=== PATIENT | female | born 1965 | race Caucasian/White ===

== ENCOUNTER → 2018-12-07 13:21 | Outpatient (POV) | payer SELFPAY | PROVIDERS: Visit Provider Dermatology | DX: Z00.00 Encounter for general adult medical examination without abnormal findings (principal) ==

== ENCOUNTER 2019-11-09 10:30 | Emergency (ER) | payer BC, SELFPAY ==
[2019-11-09 10:38] VITALS: BP 143/86; PULSE 94; RESP 18; TEMP 36.6; O2SAT 100; BMI 32.5
--- NOTE | 2019-11-09 11:06 | HMH.EDGENADL ---
ED Disposition Clinical Impression: Local reaction to bee sting Qualifiers: Encounter type: initial encounter Injury intent: accidental or unintentional Qualified Code(s): T63.441A - Toxic effect of venom of bees, accidental (unintentional), initial encounter Disposition: Home, Self-Care Condition on Discharge: Good Instructions: DI for Insect Bites and Stings Additional Instructions: Continue ice, Zyrtec. Prednisone as prescribed beginning tomorrow. Return to the emergency room if fever, swelling becoming more severe or difficulty breathing. Prescriptions: predniSONE [Prednisone 20mg Tab] 20 mg PO BID #10 tab Transmission Status: Received by [facility] #[id number] Referrals: Gigi Girard [Primary Care Provider] - - Critical Care Critical Care Time: No Attestation: On 11/09/19, the high probability of a clinically significant, sudden or life threatening deterioration of the following system(s) required my full and direct attention, intervention and personal management. The time I documented below is in addition to time spent performing reported procedures but includes the following listed in this critical care notation. Medical Decision Making - Samson Inquiry Pt receiving controlled substance: No Vital Signs: 11/09/19 10:38 11/09/19 11:55 Temperature 97.9 F 97.9 F Temperature Source Oral Oral Pulse Rate 94 H Pulse Rate [Left Radial] 94 H Respiratory Rate 18 18 Blood Pressure 143/86 H Blood Pressure [Left Arm] 143/86 H Blood Pressure Mean [Left Arm] 105 Blood Pressure Source Automatic Cuff Blood Pressure Source [Left Arm] Automatic Cuff Blood Pressure Position Sitting Blood Pressure Position [Left Arm] Sitting 02 Sat by Pulse Oximetry 100 Oxygen Delivery Method Room Air Room Air Orders (Tests/Meds): ED MEDICATIONS Discontinued Medications Generic Name Dose Route Start Last Admin Trade Name Freq PRN Reason Stop Dose Admin Dexamethasone Sodium Phosphate 10 mg 11/09/19 11:16 11/09/19 11:22 Decadron 4mg/Ml 1ml Vial IM 11/09/19 11:17 10 mg ONCE ONE Administration General Adult HPI - General Chief complaint: Allergic Reaction Stated complaint: bee sting on chin reaction Time Seen by Provider: 11/09/19 11:06 Mode of Arrival: Ambulatory Limitations: No Limitations Description of Symptoms (Recalled from ER Triage Doc. by RN): Pt reports stung by a bee yesterday on her chin. Redness and swelling noted to chin and neck. Pt reports swelling, redness is worse this morning and skin is warm to the touch and is having difficulty swallowing. Pt denies SOA. States she took zyrtec yesterday and this morning. Pt reports has not taken benadryl because is makes her very drowsy and SOA - History of Present Illness HPI narrative: The patient is a senior analyst. She got stung by a honeybee on her chin yesterday. Yesterday she had swelling and redness, local heat of the chin but overnight it has extended down onto her anterior neck and causes some tightness with swallowing. No wheezing or shortness of breath. She says that she has a history of these types of local reactions to previous stings. She usually gets treated with steroids. She cannot take Benadryl due to excessive drowsiness, she has been taking Zyrtec. - Related Data Previous Rx's Medication Instructions Recorded predniSONE [Prednisone 20mg 20 mg PO BID #10 tab 11/09/19 Tab] Allergies Allergy/AdvReac Type Severity Reaction Status Date / Time No Known Allergies Allergy Verified 11/09/19 11:19 [facility] History - Hepatitis A Screen Drug use history?: No High risk sexual behaviors?: No History of sexually transmitted infection?: No Currently employed?: No Childcare worker?: No Do you have indoor plumbing?: Yes Do you have electricity?: Yes Attestation statement:: This patient has been screened for Hepatitis A risk factors. I have reviewed the patient's past medical history: Yes Medi
[2019-11-09 11:55] VITALS: BP 143/86; PULSE 94; RESP 18; TEMP 36.6; O2SAT 100
== END 2019-11-09 11:57 | disposition home or self-care (01) ==
PROVIDERS: Emergency Provider Emergency Medicine; PCP Family Medicine
DX: T63.441A Toxic effect of venom of bees, accidental (unintentional), initial encounter (principal)
CPT/HCPCS: 96372; 99281

== ENCOUNTER 2020-10-14 18:28 | Emergency (ER) | payer BC, SELFPAY ==
[2020-10-14 19:15] VITALS: BP 131/64; PULSE 67; RESP 19; TEMP 36.8; O2SAT 98; BMI 33.0
--- NOTE | 2020-10-14 19:40 | HMH.EDUTC ---
[facility] [place]: Local reaction to bee sting Qualifiers: Encounter type: initial encounter Injury intent: undetermined intent Qualified Code(s): T63.444A - Toxic effect of venom of bees, undetermined, initial encounter Disposition: Home, Self-Care Condition on Discharge: Good Instructions: Insect Bites and Stings, DI for Insect Bites and Stings, How to Care for an Insect Bite or Sting Additional Instructions: Take over the counter Bendadryl as directed on package for bee sting reactions Follow up with your Family Doctor if no improvement or any worsening of symptoms REturn if needed Straight to ER if any life threatening symptoms Prescriptions: methylPREDNISolone [Medrol 4mg tab] 4 mg PO DIRECTED #21 tab Transmission Status: Pending to [facility] #[id number] Referrals: Gigi Girard [Primary Care Provider] - As needed Time of Disposition: 20:04 Medical Decision Making - Samson Inquiry Pt receiving controlled substance: No Samson was queried for this patient: No Vital Signs: 10/14/20 19:15 Temperature 98.2 F Temperature Source Oral Pulse Rate [Right Brachial] 67 Respiratory Rate 19 Blood Pressure [Right Arm] 131/64 Blood Pressure Mean [Right Arm] 86 Blood Pressure Source [Right Arm] Automatic Cuff Blood Pressure Position [Right Arm] Sitting 02 Sat by Pulse Oximetry 98 Oxygen Delivery Method Room Air Orders (Tests/Meds): ED MEDICATIONS Discontinued Medications Generic Name Dose Route Start Last Admin Trade Name Freq PRN Reason Stop Dose Admin Famotidine 20 mg 10/14/20 19:42 10/14/20 19:50 Famotidine 20mg Tablet PO 10/14/20 19:43 20 mg ONCE ONE Administration Loratadine 10 mg 10/14/20 19:42 10/14/20 19:50 Loratadine 10mg Tablet PO 10/14/20 19:43 10 mg ONCE ONE Administration Methylprednisolone Sodium Succinate 125 mg 10/14/20 19:42 10/14/20 19:50 Methylprednisolone Sod Succ 125mg Vial IM 10/14/20 19:43 125 mg ONCE ONE Administration Medical Decision Narrative: Patient is driving and could not have Benadryl due to no one to drive her home Swelling much improved after medication patient states that her chin is not feeling as tight and feeling better [facility] [place] General Stated complaint: bee sting Time Seen by Provider: 10/14/20 19:41 Mode of Arrival: Ambulatory Source of Information: Patient Limitations: No Limitations Description of Symptoms (Recalled from Triage Doc. by RN): PATIENT C/O BEE STING ON CHIN APPROX 1750 TODAY HEENT Symptoms (Recalled from RN notes): Yes Resp Symptoms (Recalled from RN notes): No Skin Symptoms (Recalled from RN notes): No MS Symptoms (Recalled from RN notes): No Functional Status (Recalled from RN notes): WNL - History of Present Illness Provider Complaint: Patient states that she was working her bees earlier When one stung her on the chin State that she sometimes has reactions so she knew she needed to come in and get checked States that she is not having any trouble breathing and no swelling in her lips yet but she was not sure what she can take with her medications so she came in to get treated - Related Data Home Medications Medication Instructions Recorded Confirmed Losartan Potassium [Cozaar 100mg 100 mg PO DAILY 10/14/20 10/14/20 Tablets] Metoprolol Succinate [Metoprolol 50 mg PO DAILY 10/14/20 10/14/20 Succinate 50mg Tablet*] Sertraline HCl [Zoloft 50mg tablet] 50 mg PO DAILY 10/14/20 10/14/20 Previous Rx's Medication Instructions Recorded methylPREDNISolone [Medrol 4mg 4 mg PO DIRECTED #21 tab 10/14/20 tab] Allergies Allergy/AdvReac Type Severity Reaction Status Date / Time No Known Allergies Allergy Verified 11/09/19 11:19 - Worker's Comp Is this a Worker's Comp case?: No H History - Hepatitis A Screen Drug use history?: No High risk sexual behaviors?: No History of sexually transmitted infection?: No Currently employed?: No Child
[2020-10-14 20:06] VITALS: BP 131/64; PULSE 67; RESP 19; TEMP 36.8; O2SAT 98
== END 2020-10-14 20:11 | disposition home or self-care (01) ==
PROVIDERS: Emergency Provider Nurse Practitioner; PCP Family Medicine
DX: T63.441A Toxic effect of venom of bees, accidental (unintentional), initial encounter (principal); S00.86XA Insect bite (nonvenomous) of other part of head, initial encounter; W57.XXXA Bitten or stung by nonvenomous insect and other nonvenomous arthropods, initial encounter; Y92.017 Garden or yard in single-family (private) house as the place of occurrence of the external cause
CPT/HCPCS: 96372; 99202; G0463

== ENCOUNTER 2021-04-11 14:39 | Emergency (ER) | payer BC, SELFPAY ==
[2021-04-11 14:46] VITALS: BP 146/74; PULSE 74; RESP 16; O2SAT 98; BMI 39.1
--- NOTE | 2021-04-11 14:50 | XR_ITS ---
PROCEDURE: XR ANKLE LT MIN 3V CLINICAL INDICATION: twisted ankle COMPARISON: No exams were available for comparison FINDINGS: No definite fracture or dislocation. IMPRESSION: No definite fracture or dislocation. Dictated by: Paris Rutledge MD 04/11/2021 15:39 Paris Rutledge MD in [place] 04/11/2021 15:39
[2021-04-11 16:07] VITALS: BP 122/51; PULSE 77; RESP 14; TEMP 36.6; O2SAT 98; BMI 32.8
--- NOTE | 2021-04-11 16:39 | HMH.EDUTC ---
[facility] [place]ression: Ankle sprain Qualifiers: Encounter type: initial encounter Involved ligament of ankle: unspecified ligament Laterality: left Qualified Code(s): S93.402A - Sprain of unspecified ligament of left ankle, initial encounter Disposition: Home, Self-Care Condition on Discharge: Good Instructions: How to Use Crutches, DI for Ankle Sprain, How to Apply an Gee Wrap, DI for Ankle Pain Additional Instructions: *weight bearing as tolerated *RICE, Rest the extremity, Ice 15-20 minutes 3-4 times daily, Compress- wear the gee wrap as discussed as much as possible to help reduce swelling and pain, Elevate the extremity when at rest *Gee wrap is for support and help control swelling, use it except in the shower. Be sure that is not to tight but not to loose either *Elevate when resting Crutches to help get around *Ibuprofen every 6-8 hours as needed for pain an inflammation. If need something more can take Tylenol in between doses of Ibuprofen to help Immediately follow up with your family doctor for new or worsening of symptoms, or no noticeable improvement over the next 3-5 days Follow up with your Family Doctor or Podiatry if no improvement or any worsening of symptoms Referrals: Gigi iGrard [Primary Care Provider] - As needed Viridiana Carmona DPM [Staff Physician] - Arianna Yadav APRN [Nurse Practitioner] - Time of Disposition: 16:46 Medical Decision Making - Samson Inquiry Pt receiving controlled substance: No Samson was queried for this patient: No Vital Signs: 04/11/21 14:46 04/11/21 16:07 Temperature 98 F Temperature Source Oral Pulse Rate [Right] 74 77 Respiratory Rate 16 14 Blood Pressure [Right Arm] 146/74 H 122/51 L Blood Pressure Mean [Right Arm] 98 74 Blood Pressure Source [Right Arm] Automatic Cuff Blood Pressure Position [Right Arm] Sitting 02 Sat by Pulse Oximetry 98 98 Oxygen Delivery Method Room Air - Radiology Data #1 Image(s): Ankle Image Reviewed: Yes I have reviewed radiologist's interpretation Preliminary Findings: No Fracture Seen IMPRESSION: No definite fracture or dislocation. [facility] [place] - General Stated complaint: AO fall 04/11 lft ankle pain Time Seen by Provider: 04/11/21 16:39 Mode of Arrival: Ambulatory Source of Information: Patient Limitations: No Limitations Description of Symptoms (Recalled from Triage Doc. by RN): pt states she twisted her L ankle this morning in a mole hole. HEENT Symptoms (Recalled from RN notes): No Resp Symptoms (Recalled from RN notes): No Skin Symptoms (Recalled from RN notes): No MS Symptoms (Recalled from RN notes): Yes (L ankle pain) Functional Status (Recalled from RN notes): na - History of Present Illness Provider Complaint: Patient states that this morning she was walking and accidently stepped in a mole hole and twisted her left ankle States that since then she has continued to have pain and swelling so this evening she came in to get it checked - Related Data Home Medications Medication Instructions Recorded Confirmed Losartan Potassium [Cozaar 100mg 100 mg PO DAILY 10/14/20 10/14/20 Tablets] Metoprolol Succinate [Metoprolol 50 mg PO DAILY 10/14/20 10/14/20 Succinate 50mg Tablet*] Sertraline HCl [Zoloft 50mg tablet] 50 mg PO DAILY 10/14/20 10/14/20 Previous Rx's Medication Instructions Recorded methylPREDNISolone [Medrol 4mg 4 mg PO DIRECTED #21 tab 10/14/20 tab] Allergies Allergy/AdvReac Type Severity Reaction Status Date / Time No Known Allergies Allergy Verified 11/09/19 11:19 - Worker's Comp Is this a Worker's Comp case?: No [facility] History - Hepatitis A Screen Drug use history?: No High risk sexual behaviors?: No History of sexually transmitted infection?: No Currently employed?: No Childcare worker?: No Do you have indoor plumbing?: Yes Do you have electricity?: Yes Attestation statement:: This patient has been screened for Hepatitis A risk f
[2021-04-11 17:11] VITALS: BP 122/51; PULSE 77; RESP 18; TEMP 36.6
== END 2021-04-11 17:15 | disposition home or self-care (01) ==
PROVIDERS: Emergency Provider Nurse Practitioner; PCP Family Medicine
DX: S93.402A Sprain of unspecified ligament of left ankle, initial encounter (principal); X50.1XXA Overexertion from prolonged static or awkward postures, initial encounter; Y92.017 Garden or yard in single-family (private) house as the place of occurrence of the external cause
CPT/HCPCS: 29515; 73610; 99202; G0463

== ENCOUNTER 2021-10-25 19:27 | Emergency (ER) | payer BC, SELFPAY ==
[2021-10-25 19:50] VITALS: BP 120/69; PULSE 69; RESP 18; TEMP 37; O2SAT 98; BMI 33.5
--- NOTE | 2021-10-25 20:53 | HMH.EDUTC ---
[facility] [place] Impression: Bronchitis, Viral syndrome Sinusitis Qualifiers: Sinusitis location: unspecified location Chronicity: acute Recurrence: non-recurrent Qualified Code(s): J01.90 - Acute sinusitis, unspecified Disposition: Home, Self-Care Condition on Discharge: Good Instructions: DI for Sinusitis Additional Instructions: Drink plenty of fluids. Take tylenol or ibuprofen for pain or fever. Take the medications as directed. Follow up with your regular doctor. GO TO THE ER FOR ANY WORSENING SYMPTOMS Don't start the oral steroids until tomorrow, since you had the shot here today. The cough medication (promethazine dm) will make you drowsy, so don't drive or operate heavy machinery after taking it. Prescriptions: Promethazine/Dextromethorphan [Promethazine-Dm Syrup] 5 ml PO Q6HP PRN #240 ml PRN Reason: Cough Transmission Status: Received by [facility] #[id number] methylPREDNISolone [Medrol] 4 mg PO DIRECTED 6 Days #21 packet Transmission Status: Received by [facility] #[id number] Azithromycin [Z-Mau 250mg Tab*] 250 mg PO UD DOSE PK #6 tab Transmission Status: Received by [facility] #[id number] Referrals: Gigi Girard [Primary Care Provider] - Time of Disposition: 21:13 Medical Decision Making - Medical Records Medical records reviewed: No: I reviewed the patient's medical records. - Samson Inquiry Pt receiving controlled substance: No Vital Signs: 10/25/21 19:50 10/25/21 21:06 Temperature 98.6 F 98.6 F Temperature Source Oral Pulse Rate 69 Pulse Rate [Left Brachial] 69 Respiratory Rate 18 18 Blood Pressure 120/69 Blood Pressure [Left Arm] 120/69 Blood Pressure Mean [Left Arm] 86 Blood Pressure Source [Left Arm] Automatic Cuff Blood Pressure Position [Left Arm] Sitting 02 Sat by Pulse Oximetry 98 Oxygen Delivery Method Room Air - Lab Data Lab Results 10/25/21 21:00: Chlamy pneumoniae PCR Not detected, Adenovirus (PCR) Not detected, B. pertussis DNA (PCR) Not detected, Coronavirus OC43 (PCR) Not detected, Coronavirus HKU1 (PCR) Not detected, Coronavirus 229E (PCR) Not detected, SARS-CoV-2 (PCR) Not detected, Coronavirus NL63 (PCR) Not detected, Human Metapneumovir PCR Not detected, Influenza A (H1) PCR Not detected, Influ A (H1N1/09) PCR Not detected, Influenza A (H3) PCR Not detected, Influenza Type A (PCR) Not detected, Influenza Type B (PCR) Not detected, M. pneumoniae (PCR) Not detected, Parainfluenza 1 (PCR) Not detected, Parainfluenza 2 (PCR) Not detected, Parainfluenza 3 (PCR) Detected A, Parainfluenza 4 (PCR) Not detected, RSV (PCR) Not detected, Entero/Rhino (PCR) Not detected Orders (Tests/Meds): ED MEDICATIONS Discontinued Medications Generic Name Dose Route Start Last Admin Trade Name Freq PRN Reason Stop Dose Admin Dexamethasone Sodium Phosphate 8 mg 10/25/21 20:56 10/25/21 21:00 Dexamethasone 4mg/Ml 1ml Vial IM 10/25/21 20:57 8 mg ONCE ONE Administration [facility] [place] - General Stated complaint: runny nose, sore throat,cough,fever Time Seen by Provider: 10/25/21 20:53 Mode of Arrival: Ambulatory Source of Information: Patient Limitations: No Limitations Description of Symptoms (Recalled from Triage Doc. by RN): PATIENT C/O NASAL CONGESTION, COUGH, AND FEVER SINCE Thursday Symptoms (Recalled from RN notes): Yes Resp Symptoms (Recalled from RN notes): Yes Skin Symptoms (Recalled from RN notes): No MS Symptoms (Recalled from RN notes): No Functional Status (Recalled from RN notes): WNL - History of Present Illness Provider Complaint: She c/o cough, chest congestion, sinus congestion, sore throat, chills, low grade fever and malaise for the past 2 days. - Related Data Home Medications Medication Instructions Recorded Confirmed Losartan Potassium [Cozaar 100mg 100 mg PO DAILY 10/14/20 10/14/20 Tablets] Metoprolol Succinate [Metoprolol 50 mg PO DAILY 10/14/20 10/25/21 Suc
[2021-10-25 21:06] VITALS: BP 120/69; PULSE 69; RESP 18; TEMP 37; O2SAT 98
[2021-10-25 21:08] LABS: Adenovirus,PCR Not Detected (NotDetected); Bordetella Pertussis Not Detected (NotDetected); Chlamydophila Pneumoniae, PCR Not Detected (NotDetected); Coronavirus 19, PCR Not Detected (NotDetected); Coronavirus 229E Not Detected (NotDetected); Coronavirus NL63 Not Detected (NotDetected); Coronavirus OC43 Not Detected (NotDetected); Coronovirus HKU1,PCR Not Detected (NotDetected); Human Metapneumovirus Not Detected (NotDetected); Influenza A, PCR Not Detected (NotDetected); Influenza AH1, 2009 Not Detected (NotDetected); Influenza AH1, PCR Not Detected (NotDetected); Influenza AH3,PCR Not Detected (NotDetected); Influenza B, PCR Not Detected (NotDetected); Mycoplasma Pneumoniae, PCR Not Detected (NotDetected); Parainfluenza 1, PCR Not Detected (NotDetected); Parainfluenza 2, PCR Not Detected (NotDetected); Parainfluenza 4, PCR Not Detected (NotDetected); Respiratory Syncytial Virus Not Detected (NotDetected); Rhinovirus/Enterovirus Not Detected (NotDetected)
[2021-10-25 23:39] LABS: Parainfluenza 3, PCR Detected (NotDetected)
== END 2021-10-25 21:16 | disposition home or self-care (01) ==
PROVIDERS: Emergency Provider Nurse Practitioner Family; PCP Family Medicine
DX: B34.8 Other viral infections of unspecified site (principal); J01.90 Acute sinusitis, unspecified; Z20.822 Contact with and (suspected) exposure to COVID-19; Z79.52 Long term (current) use of systemic steroids
CPT/HCPCS: 87581; 87632; 87798; 96372; 99213; C9803; G0463; U0003; U0005

== ENCOUNTER → 2022-04-22 14:05 | Outpatient (CLI) | payer BC, SELFPAY ==
--- NOTE | 2022-04-22 14:13 | ECG_ITS ---
APPROVED REPORT Exam: Resting ECG HR:70 bpm ECG Measurements Heart Rate 70 AXES AR 172 P 76 QRSd 87 QRS 99 QT 391 T 52 QTc 412 Conclusion SINUS RHYTHM BORDERLINE RIGHT AXIS DEVIATION [QRS AXIS > 90] BORDERLINE ECG UNCONFIRMED REPORT Electronically signed by : Kolby Jarquin MD 05/08/2022 20:20:34
== END ==
LOC: RT 14:07
PROVIDERS: PCP Physician Assistant; Visit Provider Colon & Rectal Surgery
DX: Z01.810 Encounter for preprocedural cardiovascular examination (principal)
CPT/HCPCS: 93005

== ENCOUNTER 2023-05-04 13:36 | Emergency (ER) | payer BC, SELFPAY ==
[2023-05-04 13:50] VITALS: BP 0/0; PULSE 0; RESP 0; TEMP -17.7; TEMP 0
--- NOTE | 2023-05-04 13:50 | PC.NURSE ---
PATIENT WENT TO PRIMARY CARE MAIN
== END 2023-05-04 13:51 | disposition left against medical advice (07) ==
LOC: UTC 15:32
PROVIDERS: Emergency Provider Nurse Practitioner; PCP Physician Assistant
DX: Z53.21 Procedure and treatment not carried out due to patient leaving prior to being seen by health care provider (principal)

== ENCOUNTER → 2023-05-04 16:22 | Outpatient (CLI) | payer BC, SELFPAY | PROVIDERS: PCP Physician Assistant; Visit Provider Nurse Practitioner Family | DX: N39.0 Urinary tract infection, site not specified (principal); B96.29 Other Escherichia coli [E. coli] as the cause of diseases classified elsewhere | CPT/HCPCS: 87086 ==

== ENCOUNTER 2023-12-24 21:54 | Emergency (ER) | payer BC, SELFPAY ==
[2023-12-24 22:03] VITALS: BP 123/74; PULSE 93; RESP 15; TEMP 36.8; O2SAT 100; BMI 63.1
--- NOTE | 2023-12-24 22:06 | XR_ITS ---
PROCEDURE INFORMATION: Exam: XR Left Ankle Exam date and time: 12/24/2023 10:28 PM Age: 58 years old Clinical indication: Injury or trauma; Other: Rolled her ankle; Swelling (edema); Left TECHNIQUE: Imaging protocol: Radiologic exam of the left ankle. Views: 3 or more views. COMPARISON: CR XR ANKLE LT MIN 3V 04/11/2021 2:51 PM FINDINGS: Bones/joints: Normal. Soft tissues: Normal. IMPRESSION: No acute findings.
--- NOTE | 2023-12-24 22:10 | HMH.EDGENADL ---
Discharge Plan Disposition Patient Disposition: Home, Self-Care Condition: Fair Prescriptions Prescriptions: No Action metformin 500 mg tablet extended release 24 hr 500 mg PO DAILY Patient Comments: TAKE 1 TABLET BY MOUTH EVERY DAY Rybelsus 14 mg tablet 14 mg PO DAILY losartan-hydrochlorothiazide 50-12.5 mg tablet 1 tab PO DAILY Patient Comments: TAKE 1 TABLET BY MOUTH EVERY DAY atorvastatin 20 mg tablet 20 mg PO DAILY sertraline 100 mg tablet 100 mg PO DAILY Patient Comments: TAKE 1 TABLET BY MOUTH EVERY DAY (DME) OneTouch Ultra Test Strip See Rx Instructions .ROUTE .MEDSUPPLY Qty: 10 Rx Instructions: As directed (DME) lancets [OneTouch Delica Plus Lancet] 33 gauge misc See Rx Instructions .ROUTE .MEDSUPPLY Qty: 100 Patient Comments: USE DIRECTED TO TEST BLOOD SUGAR ONCE DAILY Rx Instructions: As directed multivitamin with iron [Daily Multiple Vitamins/Iron] Tablet 1 tab PO DAILY nitrofurantoin monohyd/m-cryst [Macrobid] 100 mg capsule 100 mg PO Q12H 7 Days Qty: 14 0RF Rx Instructions: must administer with a meal/food Referrals Follow up/Referrals: Yanira Espinosa PA [Primary Care Provider] - See instructions Viridiana Carmona DPM [Staff Physician] - See instructions Clinical Impressions Clinical Impression: Left ankle sprain Qualifiers: Encounter type: initial encounter Involved ligament of ankle: unspecified ligament Qualified Code(s): S93.402A - Sprain of unspecified ligament of left ankle, initial encounter Instructions Patient Instructions: DI for Ankle Sprain Discharge ED Provider: Dave Cohen General Adult HPI <RYAN Issa - Last Filed: 12/24/23 23:02> General Chief complaint: Extremity Injury, Lower Stated complaint: AO 12/24/232129 left foot injury Time Seen by Provider: 12/24/23 22:01 Mode of Arrival: Family Vehicle Source of Information: Patient Limitations: No Limitations Description of Symptoms (Recalled from ER Triage Doc. by RN): tripped over pet at approx 2130 and injured left ankle stating it rolled laterally. obvious swelling. ice applied. no previous issues with foot. History of Present Illness HPI narrative: Patient presents for left ankle pain. Patient states that she inverted her ankle around 9 PM with swelling and inability to bear weight at the time and now. She denies any numbness or tingling. Related Data Home Medications Medication Instructions Recorded Confirmed atorvastatin 20 mg tablet 20 mg PO DAILY 05/04/23 05/04/23 blood sugar diagnostic (OneTouch #10 ea 05/04/23 05/04/23 Ultra Test strips) lancets 33 gauge (OneTouch Delica #100 ea 05/04/23 05/04/23 Plus Lancet) losartan 50 mg-hydrochlorothiazide 1 tab PO DAILY 05/04/23 05/04/23 12.5 mg tablet metformin 500 mg tablet,extended 500 mg PO DAILY 05/04/23 05/04/23 release 24 hr multivitamin with iron (Daily 1 tab PO DAILY 05/04/23 05/04/23 Multiple Vitamins with Iron tablet) semaglutide 14 mg tablet (Rybelsus) 14 mg PO DAILY 05/04/23 05/04/23 sertraline 100 mg tablet 100 mg PO DAILY 05/04/23 05/04/23 Previous Rx's Medication Instructions Recorded nitrofurantoin 100 mg PO Q12H 7 days #14 caps 05/04/23 monohydrate/macrocrystals 100 mg capsule (Macrobid) Allergies Allergy/AdvReac Type Severity Reaction Status Date / Time No Known Allergies Allergy Verified 05/04/23 14:33 [facility] <RYAN Issa - Last Filed: 12/24/23 23:02> [facility] Disclaimer: The information contained in this section may have been updated after the patient was seen, as this information can be updated by other users. Medical History (Updated 12/24/23 @ 22:41 by RYAN Issa) Hyperlipidemia Diabetes Viral syndrome Bronchitis Sinusitis Ankle sprain Local reaction to bee sting Surgical History (Updated 05/04/23 @ 14:37 by Raine Diaz LPN) H/O hemorrhoidectomy Social History (Updated 05/04/23 @ 14:37 by Raine Diaz LPN) Smoking Status: Unknown if ever smoked alcohol intake: never substance use type: denies use current occupational status: other Travel in the last 8 weeks: None <RYNA Issa - Last Filed: 12/24/23 23:02> ROS Obtained: Yes Systems reviewed as appropriate & no additional complaints except as documented Physical Exam <RYAN Issa - Last Filed: 12/24/23 23:02> General General appearance: alert and in no apparent distress Respiratory Respiratory exam: Present normal lung sounds bilaterally Cardiovascular Cardiovascular exam: Present regular rate and normal rhythm Expanded Lower Extremity Exam Left: Ankle image: 1. Ecchymosis and swelling 2. Ecchymosis and swelling Neurological Exam Neurological exam: Present alert and oriented X3 Medical Decision Making <RYAN Issa - Last Filed: 12/24/23 23:02> Medical Records Medical records reviewed: Yes I reviewed the patient's medical records. Samson Inquiry Pt receiving controlled substance: No Vital Signs: 12/24/23 22:03 12/24/23 22:30 12/24/23 23:14 Temperature 98.2 F 98.0 F Temperature Source Oral Oral Pulse Rate 80 87 Pulse Rate [Right Brachial] 93 H Respiratory Rate 15 19 Blood Pressure 121/72 145/75 H Blood Pressure [Right Arm] 123/74 Blood Pressure Mean 81 Blood Pressure Mean [Right Arm] 90 Blood Pressure Source Automatic Cuff Blood Pressure Source [Right Arm] Automatic Cuff Blood Pressure Position Sitting Blood Pressure Position [Right Arm] Sitting 02 Sat by Pulse Oximetry 100 99 Oxygen Delivery Method Room Air Room Air Room Air Orders (Tests/Meds): ED MEDICATIONS Discontinued Medications Generic Name Dose Route Start Last Admin Trade Name Pramod PRN Reason Stop Dose Admin Acetaminophen 1,000 mg 12/24/23 22:06 12/24/23 22:10 Acetaminophen 500mg Tab PO 12/24/23 22:07 Not Given ONCE ONE Ibuprofen 800 mg 12/24/23 22:06 12/24/23 22:12 Ibuprofen 400 Mg Tablet PO 12/24/23 22:07 Not Given ONCE ONE ORDERS Category Date Time Status Ankle XR - Left minimum 3 Views [XR ankle LT min 3V] Exams 12/24/23 22:06 Taken Stat Medical Decision Narrative: In summary patient is a 58-year-old female who presents to the emergency department for evaluation of left ankle pain. Patient is hemodynamically stable upon arrival, afebrile. Physical exam is remarkable for edema and ecchymosis at lateral medial malleolus of the left ankle. Patient is peripheral pulses distally positive DP PT. No obvious bony deformity.. Differential diagnosis includes ankle sprain versus fracture. Initial workup will be conducted with plain film x-rays. Initial interventions would be Tylenol and Motrin however patient is premedicated with Tylenol prior to arrival and reportedly cannot take Motrin due to her medication combination which I presume is semaglutide. Initial workup reviewed by me and my informal interpretation of her plain film x-ray shows no acute fracture. Upon repeat evaluation patient is able to stand but not walk. Given this appropriate for discharge with an ankle boot and crutches with referral to Dr. Carmona <Dave Cohen MD - Last Filed: 12/24/23 23:18> Vital Signs: 12/24/23 22:03 12/24/23 22:30 12/24/23 23:14 Temperature 98.2 F 98.0 F Temperature Source Oral Oral Pulse Rate 80 87 Pulse Rate [Right Brachial] 93 H Respiratory Rate 15 19 Blood Pressure 121/72 145/75 H Blood Pressure [Right Arm] 123/74 Blood Pressure Mean 81 Blood Pressure Mean [Right Arm] 90 Blood Pressure Source Automatic Cuff Blood Pressure Source [Right Arm] Automatic Cuff Blood Pressure Position Sitting Blood Pressure Position [Right Arm] Sitting 02 Sat by Pulse Oximetry 100 99 Oxygen Delivery Method Room Air Room Air Room Air Orders (Tests/Meds): ED MEDICATIONS Discontinued Medications Generic Name Dose Route Start Last Admin Trade Name Freq PRN Reason Stop Dose Admin Acetaminophen 1,000 mg 12/24/23 22:06 12/24/23 22:10 Acetaminophen 500mg Tab PO 12/24/23 22:07 Not Given ONCE ONE Ibuprofen 800 mg 12/24/23 22:06 12/24/23 22:12 Ibuprofen 400 Mg Tablet PO 12/24/23 22:07 Not Given ONCE ONE ORDERS Category Date Time Status Ankle XR - Left minimum 3 Views [XR ankle LT min 3V] Exams 12/24/23 22:06 Taken Stat Medical Decision Narrative: In summary patient is a 58-year-old female who presents to the emergency department for evaluation of left ankle pain. Patient is hemodynamically stable upon arrival, afebrile. Physical exam is remarkable for edema and ecchymosis at lateral medial malleolus of the left ankle. Patient is peripheral pulses distally positive DP PT. No obvious bony deformity.. Differential diagnosis includes ankle sprain versus fracture. Initial workup will be conducted with plain film x-rays. Initial interventions would be Tylenol and Motrin however patient is premedicated with Tylenol prior to arrival and reportedly cannot take Motrin due to her medication combination which I presume is semaglutide. Initial workup reviewed by me and my informal interpretation of her plain film x-ray shows no acute fracture. Upon repeat evaluation patient is able to stand but not walk. Given this appropriate for discharge with an ankle boot and crutches with referral to Dr. Carmona I was consulted by the ABISAI, and we discussed the complexity of the problems being addressed. I approved the treatment and management plan for this patient?s care in the Emergency Department, thus performing a substantive portion of the medical decision making. Dave Cohen MD Critical Care <RYAN Issa - Last Filed: 12/24/23 23:02> Critical Care Time Critical Care Time: No
[2023-12-24 22:30] VITALS: BP 121/72; PULSE 80; O2SAT 99
[2023-12-24 23:14] VITALS: BP 145/75; PULSE 87; RESP 19; TEMP 36.7; O2SAT 96
== END 2023-12-24 23:16 | disposition home or self-care (01) ==
PROVIDERS: Emergency Provider Emergency Medicine; PCP Physician Assistant
DX: S93.402A Sprain of unspecified ligament of left ankle, initial encounter (principal); M25.572 Pain in left ankle and joints of left foot; W01.10XA Fall on same level from slipping, tripping and stumbling with subsequent striking against unspecified object, initial encounter
CPT/HCPCS: 73610; 99283

== ENCOUNTER 2024-01-14 11:04 | Outpatient (CLI) | payer BC, SELFPAY ==
--- NOTE | 2024-01-14 11:07 | XR_ITS ---
FINAL REPORT CLINICAL HISTORY: Foot Pain FINDINGS: Left foot Three views were obtained. There is no acute fracture or dislocation. The joint spaces appear normal. No soft tissue abnormality is identified. Small plantar spur is identified. IMPRESSION: No acute process. Reviewed, Interpreted and Dictated by Luisito Mcnamara MD Transcribed by Sariah Abraham Authenticated and [facility]
--- NOTE | 2024-01-14 11:07 | XR_ITS ---
FINAL REPORT CLINICAL HISTORY: Foot Pain FINDINGS: Right foot Three views were obtained. There is no acute fracture or dislocation. There are mild hypertrophic changes of the 1st metatarsophalangeal joint. Small plantar spur is identified. No soft tissue abnormality is identified. IMPRESSION: Mild degenerative changes as above. Reviewed, Interpreted and Dictated by Luisito Mcnamara MD Transcribed by Sariah Abraham Authenticated and [facility]
== END 2024-01-14 23:59 | disposition home or self-care (01) ==
LOC: RAD 11:05
PROVIDERS: Visit Provider Podiatrist
DX: M79.671 Pain in right foot (principal); M79.672 Pain in left foot
CPT/HCPCS: 73630

== ENCOUNTER 2025-04-04 09:27 | Emergency (ER) | payer BC, SELFPAY ==
[2025-04-04 09:33] VITALS: BP 181/103; PULSE 72; O2SAT 98
[2025-04-04 09:34] VITALS: BP 181/103; PULSE 71; RESP 18; TEMP 36.7; O2SAT 98; BMI 28.9
--- OUTSIDE RECORDS SUMMARY | 2025-04-04 09:55 | XMS_ITS | Referral Summary ---
Author Organization [employer] ([place], [place], [place], [place]) Address [address] [place] [address] Care Team Providers Care Factory Machine Computer Operator Name Role Phone Yanira Espinosa Primary Care Provider [phone] Allergies No known active allergies Medications losartan-hydroC HLOROthiazide (HYZAAR) 50-12.5 mg per tablet Take 1 tablet by mouth daily. Active metFORMIN (GLUCOPHAGE) 500 MG tablet Take 1 tablet (500 mg total) by mouth once. Active metoprolol succinate (TOPROL-XL) 50 MG 24 hr tablet Take 1 tablet (50 mg total) by mouth daily. Active sertraline (ZOLOFT) 100 MG tablet Take 1 tablet (100 mg total) by mouth daily. Active UNKNOWN Rybelsus 14mg PO once daily . Active atorvastatin (LIPITOR) 20 MG tablet Take 1 tablet (20 mg total) by mouth daily. Active iron, carbonyl 45 mg Tab tablet Take by mouth. Active Active Problems Problem Noted Date Diagnosed Date Anxiety 12/05/2022 Depression 12/05/2022 Diabetes mellitus 12/05/2022 Hypertension 12/05/2022 Social History Tobacco Use Types Packs/Day Years Used Date Smoking Tobacco: Never Smokeless Tobacco: Never Tobacco Cessation:Counseling Given: Not Answered Alcohol Use Standard Drinks/Week Comments Not Currently 0 (1 standard drink = 0.6 oz pur e alcohol) Food Insecurity Answer Date Recorded Food run out past 12 months Not on file 06/15 Food did not last past 12 months Not on file 07/03/2023 Employment Answer Date Recorded Help finding and keeping a job Not on file 0 07/03/2023 Family and Community Support Answer Marco A e Recorded Help with Day to Day Activities Not on file 07/03/2023 Feeling Lonely or Isolated Not on file 07/03 Educational Attainment Answer Date Charbel rded Speak language other than Niuean at home Not on file 07/03/2023 Want help with school or training Not on file 07/03/2023 Substance Use Answer Date Recorded Used prescription meds for non-medical reasons N ot on file 07/03/2023 Used illegal drugs past 12 months Not on file 07/03/2023 Comments Unknown Sex and Gender Information Value Date Recorded Sex Assigned at Not on file Legal Sex Female 3:04 PM CDT Gender Identity Not on file Sexual Orientation Not on file Last Filed Vital Signs Vital Sign Reading Time Taken Comments Blood Pressure 134/79 12/25/2023 4:24 PM EDT Pulse 90 12/25/2023 4:24 PM EDT Temperature 36.7 C (98 F) 12/25/2023 4:24 PM EDT Respiratory Rate 18 12/25/2023 4:24 PM EDT Oxygen Saturation 99% 12/25/2023 4:24 PM EDT Inhaled Oxygen Concentration - - Weight 88 kg (194 lb) 12/25/2023 4:24 PM EDT Height 175.3 cm (5' 9 ) 12/25/2023 4:24 PM EDT Body Mass Index 28.65 12/25/2023 4:24 PM EDT Plan of Treatment Not on file Insurance BLUE CROSS/BLUE SHIELD Care Teams Factory Machine Computer Operator Relationship Specialty Start Date End Date Yanira Espinosa PA PCP - General Physician Foster Care Therapist 12/05/22
--- OUTSIDE RECORDS SUMMARY | 2025-04-04 09:55 | XMS_ITS | Clinical Summary ---
Author Organization [facility] Address [address] [place] [address] Care Team Providers Care Pipe Fitter Name Role Phone Gigi Girard MD Primary Care Provider [phone] Allergies No known active allergies Medications Multiple Vitamins-Minera ls (MULTIVITAMIN WITH MINERALS) tablet tablet Take 1 tablet by mouth Daily. Active losartan-hydroc hlorothiazide (HYZAAR) 100-25 MG per tablet Take 1 tablet by mouth Daily. 1 Active metoprolol succinate XL (TOPROL-XL) 50 MG 24 hr tablet Take 50 mg by mouth Daily. 1 Active sertraline (ZOLOFT) 100 MG tablet Take 100 mg by mouth Daily. 1 Active methylPREDNISol one (MEDROL) 4 MG dose packIndications :Rotator cuff injury, left, initial encounter,Bursi tis of left shoulder,Imping ement syndrome of left shoulder,Left shoulder pain, unspecified chronicity,Adhe sive capsulitis of left shoulder Use as directed by package instructions 1 each 2 Active meloxicam (MOBIC) 7.5 MG tabletIndicatio ns:Rotator cuff injury, left, initial encounter,Bursi tis of left shoulder,Imping ement syndrome of left shoulder,Left shoulder pain, unspecified chronicity,Adhe sive capsulitis of left shoulder 1 Oral Daily with food. 30 tablet 1 2 Active Active Problems Problem Noted Date Diagnosed Date Adhesive capsulitis of left shoulder 09/10/2021 Rotator cuff injury, left, initial encounter Bursitis of left shoulder 03/05/2021 Impingement syndrome of left shoulder 03/05/2021 Irritable bowel syndrome with constipation 06/23 Resolved Problems Problem Noted Date Diagnosed Date Resolved Date Mass of right axilla 12/18/2016 018 S/P left breast biopsy, September06/12/2016 06/23/2019 S/P endometrial ablation 06/12/201602/2020 Family History Medical History Relation Name Comments No Known Problems Brother No Known Problems Daughter Heart attack Father No Known Problems Maternal Aunt No Known Problems Maternal Grandmother Diabetes Mother Hypertension Mother No Known Problems Paternal Aunt No Known Problems Paternal Grandmother No Known Problems Sister No Known Problems Son Breast cancer Neg Hx Ovarian cancer Neg Hx Relation Name Status Comments Brother Daughter Father Maternal Aunt Maternal Grandmother Mother Paternal Aunt Paternal Grandmother Sister Son Social History Tobacco Use Types Packs/Day Years Used Date Smoking Tobacco: Never Smokeless Tobacco: Never Alcohol Use Standard Drinks/Week Comments No 0 (1 standard drink = 0.6 oz pur e alcohol) Abuse Screen Answer Date Recorded Unsafe at Home or Work/School Not on file Feels Threatened by Someone? Not on file 02/2023 Does Anyone Keep You from Co ntacting Others or Doint Things Outside the Home? Not on file 03/23/2023 Physical Sign of Abuse Present Not on file 1 Housing Stability Answer Date Recorded Current Living Arrangements Not on file 02/2023 Potentially Unsafe Housing Conditions Not on katherin e 03/23/2023 Family and Community Support Answer Marco A e Recorded Help with Day-to-Day Activities Not on file 03/23/2023 Lonely or Isolated Not on file 03/23/2023 Employment Answer Date Recorded Do you want help finding or keeping work or a andreia b? Not on file 03/23/2023 Disabilities Answer Date Recorded Concentrating, Remembering, or Making Decisions Difficulty Not on file 03/23/2023 Doing Errands Independently Difficulty Not on fi le 03/23/2023 Education Answer Date Recorded Help with school or training? Not on file Preferred Language Not on file 03/23/2023 Comments No Sex and Gender Information Value Date Recorded Sex Assigned at Not on file Legal Sex Female 12:19 PM EDT Gender Identity Not on file Sexual Orientation Not on file Last Filed Vital Signs Vital Sign Reading Time Taken Comments Blood Pressure 122/84 10/24/2021 8:14 AM EDT Pulse 64 06/06/2021 1:04 PM EST Temperature - - Respiratory Rate 16 12/18/2016 3:29 PM EDT Oxygen Saturation 98% 03/05/2021 1:33 PM EDT Inhaled Oxygen Concentration - - Weight 106 kg (233 lb) 10/24/2021 8:14 AM EDT Height 176.5 cm (5' 9.49 ) 10/24/2021 8:14 AM ED T Body Mass Index 33.93 10/24/2021 8:14 AM EDT Plan of Treatment Health Maintenance Due Date Last Done Comments Annual Gynecologic Pelvic an d Breast Exam 1965 COLOGUARD 11/08/2011 COLON CANCER SCREENING 5 YEA R SIGMOIDOSCOPY 11/08/2011 COLONOSCOPY 11/08/2011 COLORECTAL CANCER SCREENING 11/08/2011 CT COLONOGRAPHY 11/08/2011 FECAL OCCULT BLOOD TEST 11/08/2011 FIT Testing (1 year) 11/08/2011 ANNUAL PHYSICAL 06/12/2016 HEPATITIS C SCREENING 06/12/2016 Pneumococcal Vaccine 50+ (1 of 1 - PCV) 2016 MAMMOGRAM 07/13/2023 07/13/2021, 06/16, 06/29/2018, Additional history exists INFLUENZA VACCINE 01/13/2025 05/07/2021, , 04/17/2020, Additional history exists TDAP/TD VACCINES (3 - Td or Tdap) 03/12/2027 017, 08/09/2016 ZOSTER VACCINE Completed 05/17/2021, 05/11/2020 Procedures Procedure Name Priority Date/Time Associated Diagnosis Comments MAMMO SCREENING DIGITAL TOMOSYNTHESIS BILATERAL W CAD Routine 07/13/2021 10:26 AM EST Visit for screening mammogram from Last 3 Months or Most Recently Relevant to Health Maintenance Results * Mammo Screening Digital Tomosynthesis Bilateral With CAD (07/13/2021 10:26 AM EST) Anatomical Region Laterality Modality Breast N/A Mammography 07/15/2021 12:4 5 PM EST Impressions 07/15/2021 12:51 PM EST No findings suspicious for malignancy. BI-RADS CATEGORY: 1, NEGATIVE RECOMMENDATION: Yearly mammogram, yearly clinical breast exam, and encourage self breast awareness. CAD was used. The standard false negative rate of mammography is between 10% and 25%. Complex patterns or increased breast density will markedly elevate the false negative rate of mammography. A letter, in lay terminology, with the results of this exam will be mailed to the patient. This report was finalized on 07/15/2021 12:[address] Jadyn Reagan MD. Narrative 07/15/2021 12:51 PM EST ROUTINE SCREENING MAMMOGRAM WITH TOMOSYNTHESIS HISTORY: 55-year-old female for routine screening IMAGE COMPARISON: Prior exams, most recently dated 07/12/2019 TECHNIQUE: Low dose full field digital breast tomosynthesis imaging was performed with 2D and 3D acquisitions consisting of bilateral CC and MLO views. Bilateral extended CC views were also performed. FINDINGS: The breasts are heterogeneously dense, which may obscure small masses. There is no worrisome mass, group of calcifications, or architectural distortion to suggest malignancy. Luz Marina Woodall OTOLOGIST IMG MAMMOGRAPHY ORDERAB LES Final Result from Last 3 Months or Most Recently Relevant to Health Maintenance Insurance EMPLOYEE Care Teams Pipe Fitter Relationship Specialty Start Date End Date Gigi Girard MD [address] [place] [address] PCP - General 07/17/15
--- OUTSIDE RECORDS SUMMARY | 2025-04-04 09:55 | XMS_ITS | Clinical Summary ---
Author Organization [employer] ([place], [place], [place], [place]) Address [address] [place] [address] Care Team Providers Care Production Support Manager Name Role Phone Yanira Espinosa Primary Care Provider [phone] Allergies No known active allergies Medications losartan-hydroC [...] Date Charbel rded Speak language other than [place] Leonean at home Not on file 07/03/2023 Want [...] 12/25/2023 4:24 PM EDT Plan of Treatment Health Maintenance Due Date Last Done Comments CT Colonography 1966 Colonoscopy 1966 Colorectal Cancer Screening 1966 Diabetic Kidney Health Evalu ation (KED) 1966 FOBT/FIT 1966 Fit-DNA (Cologuard) 1966 Sigmoidoscopy 1966 Diabetic Eye Exam 1976 HIV Screening 1981 Hepatitis C Screening 1984 Pap Smear 11/08/1987 Lipid Panel 11/08/2011 Hemoglobin A1C 12/05/2022 Tobacco Cessation Counseling and Screening (12+) 12/24/2024 12/25/2023 COVID-19 VACCINE (2024-2 6 season) 2025 06/18/2023, 02/28/2022, 05/07/2021, Additional history exists Influenza Vaccine (#1) 2025 , 05/07/2021, 08/09/2016 Breast Cancer Screening 08/04/2025 08/04/2023, 06/26 DTAP/TDAP/TD VACCINES (3 - T d or Tdap) 03/12/2027 03/12/2017, 08/09/2016 Shingles Vaccine (Zoster) Completed 05/17/2021, Pneumococcal 50+ years Completed 05/20/2022 Insurance BLUE CROSS/BLUE SHIELD Care Teams Production Support Manager Relationship Specialty Start Date End Date Yanira Espinosa PA PCP - General Physician B And B Gang Worker 12/05/22
--- OUTSIDE RECORDS SUMMARY | 2025-04-04 09:55 | XMS_ITS | Patient Health Record ---
Author Organization [facility] Address [address] [place] [address] Care Team Providers Care Regulatory Affairs Director Name Role Phone melcohr guzman Primary Care Provider Unavailabl e Reason For Referral No Information Medications Medication SIG (Take, Route, Frequency, Duration) Notes Start Date End Date Status Metoprolol Succinate 50mg *Please review and pick correct strength-formulation from Verified Identity Passspan options. If intended option is not shown, discontinue and re-order from Quick Search* Active Losartan Potassium 75mg *Please review and pick correct strength-formulation from Medispan options. If intended option is not shown, discontinue and re-order from Quick Search* Active Plan Of Treatment No Information Insurance Providers Payer Name Payer Address Payer Phone Subscriber Number Group Number Insured Name Patient Relationship to Insured Coverage Start Date Coverage End Date [facility] [address] [place] [address] [id number] LEIDY GARNICA Self - patient is the insured Medical (General) History Medical History History ICD Code HTN Surgical History Surgery Date(Month/Year) Polyps removed from [facility] 05/2020 Hospitalization History Reason Date(Month/Year) see above
[2025-04-04 10:00] VITALS: BP 147/97; PULSE 66; O2SAT 95
--- NOTE | 2025-04-04 10:14 | ED_ITS ---
<Statement entered by Justin Lucero MD - 04/04/25 13:00> I was consulted by the ABISAI, and we discussed the complexity of the problems being addressed. I approve the treatment and management plan for this patient's care in the emergency department, thus performing a substantive portion of the medical decision making. I personally evaluated patient's hand. She has some mild tenderness over the flexor tendon sheath but no circumferential swelling of the digit, flexion and extension function intact. It is not held in flexion and she has no pain with extension of the finger. I have low concern for flexor tenosynovitis at this time and her symptomatology is most consistent with cellulitis/insect bite. Justin Lucero MD Discharge Plan Disposition Patient Disposition: Home, Self-Care Prescriptions Prescriptions: New amoxicillin-pot clavulanate 875-125 mg tablet 1 tab PO BID Qty: 20 0RF prednisone 20 mg tablet 20 mg PO BID 7 Days Qty: 14 0RF No Action losartan-hydrochlorothiazide 50-12.5 mg tablet 1 tab PO DAILY Patient Comments: TAKE 1 TABLET BY MOUTH EVERY DAY sertraline 100 mg tablet 100 mg PO DAILY Patient Comments: TAKE 1 TABLET BY MOUTH EVERY DAY (DME) OneTouch Ultra Test Strip See Rx Instructions .ROUTE .MEDSUPPLY Qty: 10 Rx Instructions: As directed (DME) lancets [OneTouch Delica Plus Lancet] 33 gauge misc See Rx Instructions .ROUTE .MEDSUPPLY Qty: 100 Patient Comments: USE DIRECTED TO TEST BLOOD SUGAR ONCE DAILY Rx Instructions: As directed losartan 25 mg tablet PO DAILY Patient Comments: TAKE 1 TABLET BY MOUTH ONCE DAILY Referrals Follow up/Referrals: Provider,Referral, [Primary Care Provider, Medical] - See instructions Activity Restrictions/Add. Instructions Additional Instructions/Restrictions: May use ice for comfort. Take Tylenol and ibuprofen for pain and swelling. Take antibiotic as directed. If any worsening symptoms occur please return to the ED Clinical Impressions Clinical Impression: Cellulitis Instructions Patient Instructions: Cellulitis Print Language Print Language: Chinese Discharge ED Provider: Justin Lucero General Adult HPI General Chief complaint: Skin/Abscess/Foreign Body Stated complaint: left hand pain, swollen Time Seen by Provider: 04/04/25 10:00 Mode of Arrival: Ambulatory Source of Information: Patient Description of Symptoms (Recalled from ER Triage Doc. by RN): Patient reports that she got stung or bit by something yesterday on her left ring finger and now it is swollen and red. History of Present Illness HPI narrative: 59-year-old female presents to the ED today for complaint that she got stung or bit by something yesterday on her left ring finger. It is swollen, red and hot to touch. She herself has no fevers or chills. No nausea, vomiting or diarrhea. No other symptoms at this time. She was working in her attic and says she felt something bite her. She feels like it was a spider. Related Data Home Medications ?Medication ?Instructions ?Recorded ?Confirmed blood sugar diagnostic (OneTouch #10 ea 05/04/2312/30 Ultra Test strips) lancets 33 gauge (OneTouch Delica #100 ea 05/04/23 Plus Lancet) losartan 50 mg-hydrochlorothiazide 1 tab PO DAILY 04/1601/14/24 12.5 mg tablet sertraline 100 mg tablet 100 mg PO DAILY 05/04/2307/08 losartan 25 mg tablet mg PO DAILY 01/14/24 4 Previous Rx's ?Medication ?Instructions ?Recorded amoxicillin 875 mg-potassium 1 tab PO BID #20 tabs clavulanate 125 mg tablet prednisone 20 mg tablet 20 mg PO BID 7 days #14 tabs 04/04/25 Allergies Allergy/AdvReac Type Severity Reaction Status Date / Time No Known Allergies Allergy Verified 01/14/24 10:27 [facility] Disclaimer: The information contained in this section may have been updated after the patient was seen, as this information can be updated by other users. Medical History Hyperlipidemia Diabetes Viral syndrome Bronchitis Sinusitis Ankle sprain Local reaction to bee sting Surgical History H/O hemorrhoidectomy Social History Smoking Status: Never smoker alcohol intake: never substance use type: denies use current occupational status: other Travel in the last 8 weeks?: None Have you lived/traveled outside [place] in past 30 days?: No Contact w/someone who lives/traveled outside [place] past 30 days?: No Exposure to someone with infectious disease in past 14 days?: No Do you have a fever (greater than 100.4 F or 38 C)?: No Have you tested positive for COVID-19?: No Exposed to someone with COVID-19 in past 14 days?: No Do you have a sore throat?: No Do you have a cough?: No Do you have any weakness?: No Do you have any diarrhea?: No Are you experiencing any unusual bleeding?: No Do you have any muscle aches/pain?: No Do you have any abdominal pain?: No Are you experiencing loss of taste or smell?: No Other Medical History Have you received the Flu Vaccine for this season: No Have you received the Pneumonia Vaccine: No ROS Obtained: Yes Systems reviewed as appropriate & no additional complaints except as documented Constitutional Constitutional: Reports as per HPI Physical Exam General General appearance: alert and in no apparent distress Head Head exam: normocephalic Eye Eye exam: Present PERRL and EOMI ENT ENT exam: Present normal oropharynx and mucous membranes moist Neck Neck exam: Present full ROM and trachea midline Respiratory Respiratory exam: Present normal lung sounds bilaterally Cardiovascular Cardiovascular exam: Present regular rate, normal rhythm, normal heart sounds, +S1 and +S2 Abdominal Exam Abdominal exam: Present soft and normal bowel sounds Extremities Exam Extremities exam: Present full ROM and normal capillary refill Neurological Exam Neurological exam: Present alert, oriented X3 and normal gait Skin Skin exam: Present warm, dry, intact and erythema Medical Decision Making Medical Records Screening: Per USPSTF and CDC recommendations, given the prevalence of disease in our region, it is our hospital?s policy to screen for HIV and viral Hepatitis for all patients aged 18 and over and those with ongoing risk factors. Samson Inquiry Pt receiving controlled substance: No Samson was queried for this patient: No Vital Signs: 04/04/25 09:33 04/04/25 09:34 04/04/25 10:00 Temperature 98.1 F Temperature Source Oral Pulse Rate 72 66 Pulse Rate [Radial] 71 Respiratory Rate 18 Blood Pressure 181/103 H 147/97 H Blood Pressure [Right Arm] 181/103 H Blood Pressure Mean [Right Arm] 129 Blood Pressure Source [Right Arm] Automatic Cuff Blood Pressure Position [Right Arm] Sitting 02 Sat by Pulse Oximetry 98 98 95 Oxygen Delivery Method Room Air Room Air 04/04/25 10:55 Temperature Temperature Source Pulse Rate 64 Pulse Rate [Radial] Respiratory Rate Blood Pressure 138/119 H Blood Pressure [Right Arm] Blood Pressure Mean [Right Arm] Blood Pressure Source [Right Arm] Blood Pressure Position [Right Arm] 02 Sat by Pulse Oximetry 95 Oxygen Delivery Method Room Air Orders (Tests/Meds): ED MEDICATIONS Generic Name Dose Route Start Last Admin Trade Name Freq PRN Reason Stop Dose Admin Sodium Chloride 8 ml 04/04/25 10:03 04/04/25 10:17 Sodium Chloride 0.9% 10ml Vial IV 05/04/25 10:02 8 ml NEEDED PRN Administration dilute pepcid Discontinued Medications Generic Name Dose Route Start Last Admin Trade Name Freq PRN Reason Stop Dose Admin Dexamethasone Sodium Phosphate 8 mg 04/04/25 10:03 04/04/25 10:16 Dexamethasone 4mg/Ml 1ml Vial IV 04/04/25 10:04 8 mg ONCE ONE Administration Diphenhydramine HCl 50 mg 04/04/25 10:03 04/04/25 10:16 Diphenhydramine 50mg/Ml Vial IV 04/04/25 10:04 50 mg ONCE ONE Administration Famotidine 20 mg 04/04/25 10:03 04/04/25 10:17 Famotidine 20mg/2ml Vial IV 04/04/25 10:04 20 mg ONCE ONE Administration Ketorolac Tromethamine 30 mg 04/04/25 10:03 04/04/25 10:16 Ketorolac 30mg/Ml Vial IV 04/04/25 10:04 30 mg ONCE ONE Administration ORDERS Category Date Time Status HIV Combo Stat Lab 04/04/25 10:11 Received Hepatitis C Ab Qual. W/ RFX Stat Lab 04/04/25 10:11 Received Medical Decision Narrative: patient is a 59-year-old female presenting to the emergency department for evaluation of insect bite. Patient is hemodynamically stable and nontoxic- appearing upon arrival, afebrile. Differential diagnosis includes cellulitis, insect bite, among others. Gave patient famotidine, Benadryl, Dex and Toradol for pain. Patient's finger does look somewhat better with the swelling and redness. It does continue with redness and swelling so patient will be sent home with treatment for cellulitis. We did evaluate for flexor tensor synovitis. Dr. Meza also evaluated patient and patient does not have Knievel signs. Patient is safe for discharge home with follow-up. Critical Care Critical Care Time Critical Care Time: No
[2025-04-04] MEDS: KETOROLAC 30MG/ML VIAL 30 MG IV (10:16)
[2025-04-04] MEDS: DEXAMETHASONE 4MG/ML 1ML VIAL 8 MG IV (10:16)
[2025-04-04] MEDS: SODIUM CHLORIDE 0.9% 10ML VIAL 8 ML IV (10:17)
[2025-04-04] MEDS: FAMOTIDINE 20MG/2ML VIAL 20 MG IV (10:17)
[2025-04-04 10:55] VITALS: BP 138/119; PULSE 64; O2SAT 95
[2025-04-04 11:15] VITALS: BP 197/90; PULSE 80; RESP 18; TEMP 36.7; O2SAT 96
[2025-04-04 11:38] LABS: Hepatitis C Ab Qual. W/ RFX NEGATIVE (Negative)
== END 2025-04-04 11:16 | disposition home or self-care (01) ==
PROVIDERS: Emergency Provider Student in an Organized Health Care Education/Training Program
DX: L03.114 Cellulitis of left upper limb (principal); M79.642 Pain in left hand; S60.465A Insect bite (nonvenomous) of left ring finger, initial encounter; W57.XXXA Bitten or stung by nonvenomous insect and other nonvenomous arthropods, initial encounter
CPT/HCPCS: 86803; 87389; 96374; 96375; 99283; 99284; J1100; J1200; J1308; J1885